=== PATIENT | female | born 1960 | race American Indian/Alaskan Native ===

== ENCOUNTER 2017-04-22 11:55 | Day surgery (SDC) | payer BC, OTHER ==
[~2017-04-22 11:55] MED LIST: Lactated Ringers 1,000 ML IV SCH; Sodium Chloride 0.9% 10 ML Syringe FLUSH PRN; Sodium Chloride 0.9% 2.5 ML Syringe FLUSH PRN
--- NOTE | 2017-04-22 12:41 | PCM.PREANE ---
Preanesthetic Assessment - Anesthesia/Transfusion/Family Hx Anesthesia History: Prior Anesthesia Without Reaction Family History of Anesthesia Reaction: No Transfusion History: No Prior Transfusion(s) - Review of Systems General: No Symptoms Pulmonary: No Symptoms Cardiovascular: No Symptoms Neurological: No Symptoms Other: Reports: None - Physical Assessment NPO Status Date: 04/21/17 O2 Sat by Pulse Oximetry: 97 Respiratory Rate: 16 Vital Signs: Last Vital Signs Temp 36.3 C 04/22/17 12:16 Pulse 87 04/22/17 12:16 Resp 16 04/22/17 12:16 BP 97/49 L 04/22/17 12:16 Pulse Ox 97 04/22/17 12:16 Height: 1.57 m Weight: 105.687 kg ASA Class: 2 Mental Status: Alert & Oriented x3 Dentition: Reports: Normal Dentition ROM/Head Extension: Full Lungs: Clear to Auscultation, Normal Respiratory Effort Cardiovascular: Regular Rate, Regular Rhythm - Allergies Allergies/Adverse Reactions: Allergies Allergy/AdvReac Type Severity Reaction Status Date / Time No Known Allergies Allergy Verified 04/20/17 17:07 - Anesthesia Plan Pre-Op Medication Ordered: None - Acknowledgements Anesthesia Type Planned: MAC Pt an Appropriate Candidate for the Planned Anesthesia: Yes Alternatives and Risks of Anesthesia Discussed w Pt/Guardian: Yes Pt/Guardian Understands and Agrees with Anesthesia Plan: Yes PreAnesthesia Questionnaire Other HEENT History: uses reading glasses Cardiovascular History: Reports: High Cholesterol, Hypertension Respiratory History: Reports: Sleep Apnea Other Respiratory History: does not use CPAP Gastrointestinal History: Reports: None Genitourinary History: Reports: None Psychiatric History: Reports: Depression Endocrine/Metabolic History: Reports: Obesity/BMI 30+ - Past Surgical History GI Surgical History: Reports: Appendectomy Female Surgical History: Reports: Hysterectomy - SUBSTANCE USE Smoking Status *Q: Never Smoker Recreational Drug Use History: No - HOME MEDS Home Medications: Home Meds Cetirizine HCl 10 mg PO ASDIRECTED 03/10/17 [History] Gabapentin [Neurontin] 300 mg PO ASDIRECTED PRN 03/10/17 [History] Losartan Potassium 100 mg PO DAILY 03/10/17 [History] Multivitamin [Multivitamins] 1 tab PO DAILY 03/10/17 [History] Polyvinyl Alcohol [LiquiTears 1.4% Ophth Soln] 1 - 2 drop EYEBOTH ASDIRECTED [History] Venlafaxine HCl [Venlafaxine HCl ER] 75 mg PO DAILY 03/10/17 [History] atorvaSTATin Calcium [Atorvastatin Calcium] 10 mg PO DAILY 03/10/17 [History] - CURRENT (IN HOUSE) MEDS Current Meds: Current Medications Lactated Ringer's (Ringers, Lactated) 1,000 mls @ 125 mls/hr IV ASDIRECTED DORY Last Admin: 04/22/17 12:17 Dose: 125 mls/hr Sodium Chloride (Saline Flush) 10 ml FLUSH ASDIRECTED PRN PRN Reason: Keep Vein Open Sodium Chloride (Saline Flush) 2.5 ml FLUSH ASDIRECTED PRN PRN Reason: Keep Vein Open
[2017-04-22] MEDS ORDERED: Lidocaine 2% 5 ML SDV ONE (12:47)
[2017-04-22] MEDS ORDERED: Propofol 200 MG/20 ML SDV ONE ×2 (12:47→14:34)
[2017-04-22] MEDS ORDERED: fentaNYL 100 MCG/2 ML SDV ONE (12:47)
[2017-04-22] MEDS ORDERED: Midazolam 1 MG/ML 2 ML SDV ONE (12:47)
--- NOTE | 2017-04-22 15:17 | PCM.OPNOTE ---
- General Post-Op/Procedure Note Date of Surgery/Procedure: 04/22/17 Operative Procedure(s): Colonoscopy Findings: Rectal polyp Pre Op Diagnosis: Family history of polyps Post-Op Diagnosis: rectal polyp Anesthesia Technique: MAC Primary Surgeon: Arline Johnson Condition: Good
[2017-04-22 15:38] VITALS: BP 128/74
--- NOTE | 2017-04-22 15:45 | PCM48HPAN ---
Post Anesthesia Note - EVALUATION WITHIN 48HRS OF ANESTHETIC Vital Signs in Normal Range: Yes Patient Participated in Evaluation: Yes Respiratory Function Stable: Yes Airway Patent: Yes Cardiovascular Function Stable: Yes Hydration Status Stable: Yes Pain Control Satisfactory: Yes Nausea and Vomiting Control Satisfactory: Yes Mental Status Recovered: Yes
--- NOTE | 2017-04-22 15:45 | PCM.POSTAN ---
POST ANESTHESIA ASSESSMENT - MENTAL STATUS Mental Status: Alert, Oriented - RESPIRATORY Respiratory Status: Respiratory Rate WNL, Airway Patent, O2 Saturation Stable - CARDIOVASCULAR CV Status: Pulse Rate WNL, Blood Pressure Stable - GASTROINTESTINAL GI Status: No Symptoms - POST OP HYDRATION Hydration Status: Adequate & Stable
--- NOTE | 2017-04-22 20:59 | OR ---
SURGEON: DENA JOHNSON MD DATE OF PROCEDURE: 04/22/2017 PREOPERATIVE DIAGNOSIS: Screening colonoscopy. POSTOPERATIVE DIAGNOSIS: Rectal polyp. PROCEDURE PERFORMED: Colonoscopy. INSTRUMENT USED: Olympus colonoscope. ANESTHESIA: MAC. EXTENT OF EXAM: To the cecum. PREPARATION: Fair. LIMITATIONS: None. INDICATION FOR EXAMINATION: The patient is a 56-year-old female with a family history of colon polyps. The patient will undergo screening colonoscopy. We discussed the procedure, expected perioperative course, and risks including bleeding, infection, damage to surrounding structures, including perforation. The patient verbalized understanding and wishes to proceed. PROCEDURE IN DETAIL: The patient was brought to the endoscopy suite and placed in left lateral decubitus position. A time-out was completed verifying the patient's name, age, date of , allergies, and procedure to be performed. Monitored anesthesia care was induced and continuous oxygen was provided via nasal cannula. After adequate sedation was achieved, digital rectal exam was performed. This exam was within normal limits. A well lubricated colonoscope was inserted into the rectum and advanced under direct visualization to the level of cecum. The cecum was identified by both visual and anatomic landmarks. A photograph was taken of the cecal cap, however, I was unable to retroflex the scope within the cecum. The scope was then fully withdrawn while examining the color, texture, anatomy, and integrity of the mucosa from the cecum to the anal canal. The findings were consistent with normal colonic mucosa. The scope was then brought into the rectum and retroflexed to allow visualization of the anal canal opening. A pedunculated 2 mm polyp was noted in the distal rectum. This was removed via cold biopsy forceps. The scope was then straightened out and removed from the patient. The cecum to anus time was 10 minutes. The patient was transferred to the recovery room in stable condition. ENDOSCOPIC DIAGNOSIS: Rectal polyp. RECOMMENDATION: Follow up in clinic in 2 weeks. ROSELYN OBREGON /[id number]
== END 2017-04-22 15:50 | disposition home or self-care (01) ==
LOC: MW.SDS 11:55
PROVIDERS: ATTEND Surgery
DX: Z12.11 Encounter for screening for malignant neoplasm of colon (principal); D12.8 Benign neoplasm of rectum; I10 Essential (primary) hypertension; G47.30 Sleep apnea, unspecified; F32.9 Major depressive disorder, single episode, unspecified; E66.9 Obesity, unspecified; Z83.71 Family history of colonic polyps; Z90.49 Acquired absence of other specified parts of digestive tract; Z90.710 Acquired absence of both cervix and uterus; Z79.899 Other long term (current) drug therapy; Z68.41 Body mass index [BMI] 40.0-44.9, adult
CPT/HCPCS: 45380; J2250; J3010; J7120; 00810; 88305; J2704